=== PATIENT | male | born 1950 | race Caucasian/White ===

== ENCOUNTER 2021-01-30 22:49 | Observation (INO) | payer OTHER, BC ==
[2021-01-30] MEDS ORDERED: NA CHLORIDE 0.9% 1,000 ML ONE (23:46)
[2021-01-30] MEDS ORDERED: ONDANSETRON 4 MG/2 ML VIAL ONE (23:46)
[2021-01-31] LABS: Absolute Lymphocytes (CBC) 1.5 K/uL (0.7-4.9); Basophils % 0.8 % (0-1.3); Hematocrit 37.3 % (39.6-49.0); Lymphocytes % 25.6 % (15.3-44.8); MPV 8.1 fL (7.6-11.3); RBC Red Blood Cell Count 4.14 M/uL (4.33-5.43)
[2021-01-31 00:02] LABS: Protime INR 1.03
[2021-01-31 00:11] LABS: ALT/SGPT 22 U/L (12-78); AST/SGOT 13 U/L (15-37); Albumin 3.7 g/dL (3.4-5.0); Alkaline Phosphatase 38 U/L (45-117); BUN Blood Urea Nitrogen 36 mg/dL (7-18); Bicarbonate 26 mmol/L (21-32); Bilirubin Direct 0.3 mg/dL (0-0.2); Bilirubin Total 1.3 mg/dL (0.2-1.0); Glucose Level 166 mg/dL (74-106); Magnesium 2.4 mg/dL (1.8-2.4); NT PRO-BNP 48 pg/mL (<125); Potassium 3.7 mmol/L (3.5-5.1); Protein, Total 6.5 g/dL (6.4-8.2); Sodium Level 144 mmol/L (136-145); Troponin (Emerg Dept Use Only) < 0.02 ng/mL (0.0-0.045)
[2021-01-31 01:11] LABS: Urine Blood Negative (Negative); Urine Glucose Negative (Negative); Urine Protein Negative (Negative); Urine Specific Gravity >=1.030 (1.005-1.030); Urine pH 5.5 (5.0-7.0)
--- NOTE | 2021-01-31 01:15 | ER ---
Nurse's Notes [facility] Name: Jason Powell Age: 70 yrs Sex: Male : 1950 Arrival Date: 01/30/2021 Time: 22:53 Bed 13 Private MD: Diagnosis: Syncope and collapse Presentation: 01/30 22:58 Chief complaint: EMS states: Pt C/O dizziness, lightheartedness, nausea and vomiting. wh Per EMS pt was diaphoretic at scene. BP was elevated at 174/94, Pt states no Hx of Hypertension, BS at scene was 164. Zofran 4 mg IV given. Coronavirus screen: Client denies travel out of the [place] in the last 14 days. At this time, the client does not indicate any symptoms associated with coronavirus-19. Ebola Screen: Patient negative for fever greater than or equal to 101.5 degrees Fahrenheit, and additional compatible Ebola Virus Disease symptoms Patient denies exposure to infectious person. Initial Sepsis Screen: Does the patient meet any 2 criteria? No. Patient's initial sepsis screen is negative. Does the patient have a suspected source of infection? No. Patient's initial sepsis screen is negative. Risk Assessment: Do you want to hurt yourself or someone else? Patient reports no desire to harm self or others. Onset of symptoms was January 30, 2021. Care prior to arrival: Medication(s) given: zofran 4 mg, IV initiated. 18 GA, in the right antecubital area, Glucose check: 175. 22:58 Method Of Arrival: EMS: [facility] 22:58 Acuity: FRANSISCO 3 Historical: - Allergies: 23:04 No Known Allergies; - Home Meds: 23:04 gabapentin 300 mg oral cap 1 cap 3 times per day [Active]; Simvastatin Oral [Active]; - PMHx: 23:04 High Cholesterol; - PSHx: 23:04 Cataract; - Immunization history:: Adult Immunizations up to date. - Social history:: Smoking status: Patient denies any tobacco usage or history of. Patient/guardian denies using alcohol, street drugs, The patient lives with family, with spouse. - Family history:: not pertinent. Screenin:04 Abuse screen: Denies threats or abuse. Denies injuries from another. Nutritional wh screening: No deficits noted. Tuberculosis screening: No symptoms or risk factors identified. Fall Risk None identified. 23:06 VAN Screening: Arm Drift: Patient shows no arm weakness. Visual Disturbance: No visual wh disturbance noted. Aphasia: No aphasia noted. Neglect: No neglect noted. Assessment: 23:05 General: Appears in no apparent distress. Behavior is calm, cooperative, appropriate wh for age. Pain: Denies pain. Neuro: Level of Consciousness is awake, alert, obeys commands, Oriented to person, place, time, Welder Fitter are equal bilaterally Moves all extremities. Gait is steady, Speech is normal, Facial symmetry appears normal, Pupils are PERRLA, Intact Reports dizziness, lightheadedness. Cardiovascular: Heart tones S1 S2. Respiratory: Airway is patent Respiratory effort is even, unlabored, Respiratory pattern is regular, symmetrical. GI: Abdomen is flat, non-distended. : No signs and/or symptoms were reported regarding the genitourinary system. EENT: No signs and/or symptoms were reported regarding the EENT system. Derm: Skin is intact, is healthy with good turgor, Skin is pink, warm \T\ dry. normal. Musculoskeletal: Circulation, motion, and sensation intact. 01/31 00:00 Reassessment: Patient appears in no apparent distress at this time. No changes from previously documented assessment. Patient and/or family updated on plan of care and expected duration. Pain level reassessed. Patient is alert, oriented x 3, equal unlabored respirations, skin warm/dry/pink. 01:05 Reassessment: Patient appears in no apparent distress at this time. Patient and/or family updated on plan of care and expected duration. Pain level reassessed. Patient is alert, oriented x 3, equal unlabored respirations, skin warm/dry/pink. Provider at bedside explaining POC need for admit. 01:45 Reassessment: Patient appears in no apparent distress at this time. Patient and/or family updated on plan of care and expected duration. Pain level reassessed. Patient is alert, oriented x 3, equal unlabored respirations, skin warm/dry/pink. Vital Signs: 01/30 22:58 BP 153 / 84; Pulse 56; Resp 18; Temp 97.7; Pulse Ox 99% on R/A; Weight 79.38 kg; Height 5 ft. 9 in. (175.26 cm); 01/31 01:05 BP 141 / 75 Supine; Pulse 64; 01:05 BP 153 / 77 Sitting; Pulse 67; 01:05 BP 137 / 73 Standing; Pulse 67; 01:49 BP 118 / 76; Pulse 60; Resp 18; Pulse Ox 98% on R/A; 01/30 22:58 Body Mass Index 25.84 (79.38 kg, 175.26 cm) ED Course: 01/30 22:53 Patient arrived in ED. mw2 22:58 Emiliano Hernandez, RN is Primary Nurse. 23:03 Triage completed. 23:04 Patient has correct armband on for positive identification. Bed in low position. Call light in reach. Side rails up X 1. monitoring and evaluation advisor on. Pulse ox on. NIBP on. 23:06 Arm band placed on right wrist. 23:06 Maintain EMS IV. Dressing intact. Good blood return noted. Site clean \T\ dry. 23:09 Altaf Medeiros MD is Attending Physician. ma2 23:52 XRAY Chest (1 view) In Process Unspecified. EDMS 01/31 00:17 CT Head C Spine In Process Unspecified. EDND 01:15 Juan Fleming DO is Referral Physician. ma2 01:16 Juan Fleming DO is Hospitalizing Provider. ma2 01:49 No provider procedures requiring assistance completed. Patient admitted, IV remains in place. Administered Medications: 01/30 23:28 Drug: NS 0.9% 1000 ml Route: IV; Rate: 1 bolus; Site: right antecubital; 01/31 01:04 Follow up: Response: No adverse reaction; IV Status: Completed infusion 01/30 23:30 Drug: Zofran (Ondansetron) 4 mg Route: IVP; Site: right antecubital; 01/31 01:04 Follow up: Response: No adverse reaction; Nausea is decreased Outcome: 01:15 Discharge ordered by . ma2 01:16 Decision to Hospitalize by Provider. ma2 01:50 Admitted to Med/surg family with patient, via wheelchair, room 220, with chart, Report called to Rachell RICHTER 01:50 Condition: stable 01:50 Instructed on the need for admit. 02:22 Patient left the ED. Signatures: Dispatcher [employer] Emiliano Barrera RN RN Altaf Medeiros MD MD ak2 Tadeo Daniel 2
--- NOTE | 2021-01-31 01:15 | EDPHYS ---
Physician Documentation [facility] Name: Jason Powell Age: 70 yrs Sex: Male : 1950 Arrival Date: 01/30/2021 Time: 22:53 Bed 13 Private MD: ED Physician Altaf Medeiros HPI: 01/30 23:32 This 70 yrs old Male presents to ER via EMS with complaints of syncope. ma2 23:32 Onset: The symptoms/episode began/occurred acutely, suddenly, 1 hour(s) ago. Severity ma2 of symptoms: At their worst the symptoms were moderate in the emergency department the symptoms have improved. The patient has not experienced similar symptoms in the past. Historical: - Allergies: 23:04 No Known Allergies; wh - Home Meds: 23:04 gabapentin 300 mg oral cap 1 cap 3 times per day [Active]; Simvastatin Oral [Active]; - PMHx: 23:04 High Cholesterol; - PSHx: 23:04 Cataract; - Immunization history:: Adult Immunizations up to date. - Social history:: Smoking status: Patient denies any tobacco usage or history of. Patient/guardian denies using alcohol, street drugs, The patient lives with family, with spouse. - Family history:: not pertinent. ROS: 23:32 Constitutional: Negative for fever, chills, and weight loss. ma2 23:32 All other systems are negative. Exam: 23:32 Constitutional: This is a well developed, well nourished patient who is awake, alert, ma2 and in no acute distress. Head/Face: Normocephalic, atraumatic. Eyes: Pupils equal round and reactive to light, extra-ocular motions intact. Lids and lashes normal. Conjunctiva and sclera are non-icteric and not injected. Cornea within normal limits. Periorbital areas with no swelling, redness, or edema. ENT: Nares patent. No nasal discharge, no septal abnormalities noted. Tympanic membranes are normal and external auditory canals are clear. Oropharynx with no redness, swelling, or masses, exudates, or evidence of obstruction, uvula midline. Mucous membranes moist. Neck: Trachea midline, no thyromegaly or masses palpated, and no cervical lymphadenopathy. Supple, full range of motion without nuchal rigidity, or vertebral point tenderness. No Meningismus. Chest/axilla: Normal chest wall appearance and motion. Nontender with no deformity. No lesions are appreciated. Cardiovascular: Regular rate and rhythm with a normal S1 and S2. No gallops, murmurs, or rubs. Normal PMI, no JVD. No pulse deficits. Respiratory: Lungs have equal breath sounds bilaterally, clear to auscultation and percussion. No rales, rhonchi or wheezes noted. No increased work of breathing, no retractions or nasal flaring. Abdomen/GI: Soft, non-tender, with normal bowel sounds. No distension or tympany. No guarding or rebound. No evidence of tenderness throughout. Back: No spinal tenderness. No costovertebral tenderness. Full range of motion. Skin: Warm, dry with normal turgor. Normal color with no rashes, no lesions, and no evidence of cellulitis. MS/ Extremity: Pulses equal, no cyanosis. Neurovascular intact. Full, normal range of motion. Neuro: Awake and alert, GCS 15, oriented to person, place, time, and situation. Cranial nerves II-XII grossly intact. Motor strength 5/5 in all extremities. Sensory grossly intact. Cerebellar exam normal. Normal gait. Vital Signs: 22:58 BP 153 / 84; Pulse 56; Resp 18; Temp 97.7; Pulse Ox 99% on R/A; Weight 79.38 kg; Height 5 ft. 9 in. (175.26 cm); 01/31 01:05 BP 141 / 75 Supine; Pulse 64; 01:05 BP 153 / 77 Sitting; Pulse 67; 01:05 BP 137 / 73 Standing; Pulse 67; 01:49 BP 118 / 76; Pulse 60; Resp 18; Pulse Ox 98% on R/A; 01/30 22:58 Body Mass Index 25.84 (79.38 kg, 175.26 cm) [facility]: 01/30 23:20 Patient medically screened. [facility] 23:32 Differential Diagnosis syncope dd iclude dehydration diarrhea vertigo vs acs. [facility] 01/31 01:14 Data reviewed: vital signs, nurses notes. Counseling: I had a detailed discussion with ma the patient and/or guardian regarding: the historical points, exam findings, and any diagnostic results supporting the discharge/admit diagnosis, the presence of at least one elevated blood pressure reading (>120/80) during this emergency department visit, the need for further work-up and treatment in the hospital. Response to treatment: the patient's symptoms have markedly improved after treatment. 01/30 23:08 Order name: Basic Metabolic Panel; Complete Time: 00:20 [facility] 01/30 23:08 Order name: CBC with Diff; Complete Time: 00:20 [facility] 01/30 23:08 Order name: LFT's; Complete Time: 00:20 nm01/30 23:08 Order name: Magnesium; Complete Time: 00:20 nm01/30 23:08 Order name: NT PRO-BNP; Complete Time: 00:20 nm01/30 23:08 Order name: PT-INR; Complete Time: 00:20 [facility] 01/30 23:08 Order name: Troponin (emerg Dept Use Only); Complete Time: 00:20 [facility] 01/30 23:08 Order name: XRAY Chest (1 view) [facility] 01/30 23:32 Order name: UDS [facility] 01/30 23:46 Order name: PTT, Activated Partial Thromb; Complete Time: 00:20 EDIL 01/31 00:44 Order name: SARS-COV-2 RT PCR; Complete Time: 01:16 ED01/31 01:11 Order name: Urine Dipstick-Ancillary; Complete Time: 01:16 EDMS 01/30 23:08 Order name: EKG; Complete Time: 23:09 [facility] 01/30 23:08 Order name: Cardiac monitoring; Complete Time: 23:31 nm01/30 23:08 Order name: EKG - Nurse/Tech; Complete Time: 23:31 nm01/30 23:08 Order name: IV Saline Lock; Complete Time: 23:31 nm01/30 23:08 Order name: Labs collected and sent; Complete Time: 23:31 nm01/30 23:08 Order name: O2 Per Protocol; Complete Time: 23:31 nm01/30 23:08 Order name: O2 Sat Monitoring; Complete Time: 23:31 nm01/30 23:32 Order name: CT Head C Spine [facility] 01/30 23:32 Order name: NPO; Complete Time: 23:32 [facility] 01/30 23:32 Order name: Urine Dipstick-Ancillary (obtain specimen); Complete Time: 01:04 ma2 01/31 00:24 Order name: Orthostatics; Complete Time: 01:04 la1 Administered Medications: 01/30 23:28 Drug: NS 0.9% 1000 ml Route: IV; Rate: 1 bolus; Site: right antecubital; 01/31 01:04 Follow up: Response: No adverse reaction; IV Status: Completed infusion 01/30 23:30 Drug: Zofran (Ondansetron) 4 mg Route: IVP; Site: right antecubital; 01/31 01:04 Follow up: Response: No adverse reaction; Nausea is decreased Disposition: 01/31/21 01:16 Hospitalization ordered by Juan Fleming for Observation. Preliminary diagnosis is Syncope and collapse. - Bed requested for Telemetry/MedSurg (observation). - Status is Observation. - Condition is Stable. - Problem is new. - Symptoms are unchanged. Signatures: Dispatcher [employer] EDIL Alexa Jimenez RN RN Richard Rivera, BUILDING CUSTODIAN-C BUILDING CUSTODIAN-Cla1 Emiliano Hernandez RN RN Altaf Medeiros MD MD ma2 Corrections: (The following items were deleted from the chart) 01/30 23:46 23:33 PTT, ACTIVATED+COAG.LAB.BRZ ordered. [facility] EDIL 23:56 23:41 CORONAVIRUS+MR.LAB.BRZ ordered. [facility] 01/31 01:15 01:15 01/31/2021 01:15 Discharged to Home. Impression: Syncope and collapse. Condition ma2 is Stable. Forms are Medication Reconciliation Form, Thank You Letter, Antibiotic Education, Prescription Opioid Use. Follow up: Juan Fleming; When: Tomorrow; Reason: If symptoms return, Continuance of care. nm2 01:32 01:16 Hospitalization Ordered by Juan Fleming DO for Observation. Preliminary diagnosis is Syncope and collapse. Bed requested for Telemetry/MedSurg (observation). Status is Observation. Condition is Stable. Problem is new. Symptoms are unchanged. ma2 02:22 01:32 01/31/2021 01:16 Hospitalization Ordered by Juan Fleming DO for Observation. Preliminary diagnosis is Syncope and collapse. Bed requested for Telemetry/MedSurg (observation). Status is Observation. Condition is Stable. Problem is new. Symptoms are unchanged. dw
[2021-01-31 01:27] LABS: Barbiturates NEGATIVE (NEGATIVE); Benzodiazepines NEGATIVE (NEGATIVE); Cocaine NEGATIVE (NEGATIVE); METHAMPHETAM NEGATIVE (NEGATIVE); Methadone NEGATIVE (NEGATIVE); Opiates NEGATIVE (NEGATIVE); Phencyclidine NEGATIVE (NEGATIVE); THC Cannibis NEGATIVE (NEGATIVE)
--- NOTE | 2021-01-31 01:38 | P.HP ---
Certification for Inpatient Patient admitted to: Observation With expected LOS: <2 Midnights Patient will require the following post-hospital care: None Practitioner: I am a practitioner with admitting privileges, knowledge of patient current condition, hospital course, and medical plan of care. Services: Services provided to patient in accordance with Admission requirements found in Title 42 Section 412.3 of the Code of Federal Regulations Patient History Date of Service: 01/31/21 Reason for admission: Near syncope, dizziness History of Present Illness: 70-year-old male with history of hyperlipidemia presents emergency department for near syncope, dizziness. Patient reports he was lying on the couch and had a sudden wave Passover him followed by severe dizziness, nausea, diaphoresis, vomiting. Patient denies any headache, chest pain, palpitations surrounding the incident, reports that the episode lasted for 20-30 min but he is still having some residual lightheadedness. Patient was evaluated in the emergency department, labs significant for hemoglobin 12.9 hematocrit 37.3 creatinine 1.43 GFR 49, BUN [address] head neck negative for any acute findings. Patient's symptoms have improved, no neurological symptoms present currently aside from some lightheadedness, ED provider wishes to admit under observation for further evaluation and management. - Past Medical/Surgical History -: Hyperlipidemia -: Borderline diabetes -: Cataract Psychosocial/ Personal History: Retired lives alone - Family History Father -: Heart disease - Social History Smoking Status: Never smoker Alcohol use: No CD- Drugs: No Caffeine use: Yes Place of Residence: Home Review of Systems 10-point ROS is otherwise unremarkable Neurological: Other (Dizziness lightheadedness), As per HPI Physical Examination - Physical Exam General: Alert, In no apparent distress HEENT: Atraumatic, PERRLA, Mucous membr. moist/pink, EOMI, Sclerae nonicteric Neck: Supple, 2+ carotid pulse no bruit, No LAD, Without JVD or thyroid abnormality Respiratory: Clear to auscultation bilaterally, Normal air movement Cardiovascular: Regular rate/rhythm, Normal S1 S2 Gastrointestinal: Normal bowel sounds, No tenderness Musculoskeletal: No tenderness Integumentary: No rashes Neurological: Normal gait, Normal speech, Normal strength at 5/5 x4 extr, Normal tone, Sensation intact, Cranial nerves 3-12 intact, Normal affect, Other (A few beats of right beating nystagmus noted on exam) Lymphatics: No axilla or inguinal lymphadenopathy - Studies Laboratory Data (last 24 hrs) 01/30/21 23:32: APTT Cancelled 01/30/21 23:23: PT 11.8, INR 1.03, APTT 26.3 01/30/21 23:23: WBC 5.70, Hgb 12.9 L, Hct 37.3 L, Plt Count 210 01/30/21 23:23: Sodium 144, Potassium 3.7, BUN 36 H, Creatinine 1.43 H, Glucose 166 H, Magnesium 2.4, Total Bilirubin 1.3 H, AST 13 L, ALT 22, Alkaline Phosphatase 38 L Assessment and Plan - Plan Assessment Dizziness, near-syncope Renal insufficiency Borderline diabetes, hyperlipidemia Plan Dizziness, near-syncope: CT head negative in the emergency department, labs unremarkable aside from mild renal insufficiency. Will obtain echocardiogram, carotid ultrasound, MRI brain without. Possibility of BPPV but symptoms are not reproducible this time. Will continue with daily aspirin, statin therapy. Orthostatics being obtained. DVT prophylaxis Lovenox 40 mg subcutaneous once daily. Renal insufficiency: Continue IV fluids, will recheck chemistry with morning labs. Consult nephrology as necessary. Borderline diabetes, hyperlipidemia: Stable, will check A1c. Discharge Plan: Home Plan to discharge in: 24 Hours - Advance Directives Does patient have a Living Will: No Does patient have a Durable POA for Healthcare: No - Code Status/Comfort Care Code Status Assessed: Yes (Full code) Critical Care: No Time Spent Managing Pts Care (In Minutes): 55
[2021-01-31 02:19] VITALS: BMI 25.8
[2021-01-31] MEDS ORDERED: ACETAMINOPHEN 500 MG TAB PO PRN (02:19)
[2021-01-31] MEDS ORDERED: ONDANSETRON 4 MG/2 ML VIAL IV PRN (02:19)
[2021-01-31] MEDS: NA CHLORIDE 0.9% 1,000 ML IV SCH ×2 (02:33→14:52)
[2021-01-31 03:13] LABS: Urine Appearance CLEAR (Clear); Urine Blood NEGATIVE (Negative); Urine Color YELLOW (Yellow); Urine Glucose NEGATIVE (Negative); Urine Protein NEGATIVE (Negative); Urine Urobilinogen 0.2 mg/dL (0.2-1.0); Urine pH 5.5 (5.0-7.0)
[2021-01-31 03:16] LABS: Urine Microscopic Reflex NO UMIC
[2021-01-31 03:22] LABS: Urine Bilirubin NEGATIVE (Negative)
[2021-01-31 03:46] VITALS: O2SAT 97
[2021-01-31] MEDS ORDERED: ETODOLAC 400 MG PO PRN (05:12)
[2021-01-31] MEDS ORDERED: POTASSIUM CL SA 10 MEQ TAB PO ONE (07:00)
[2021-01-31 08:05] LABS: Potassium 4.3 mmol/L (3.5-5.1); Thyroid Stimulating Hormone 1.63 uIU/mL (0.360-3.740)
--- NOTE | 2021-01-31 08:57 | RAD REPORT ---
EXAM DESCRIPTION: RAD - Chest Single View - 01/30/2021 11:52 pm CLINICAL HISTORY: CHEST PAIN Chest pain. COMPARISON: No comparisons FINDINGS: Portable technique limits examination quality. The lungs are grossly clear. The heart is normal in size. No displaced fractures. IMPRESSION: No acute intrathoracic process suspected.
--- NOTE | 2021-01-31 08:58 | EKG ---
Test Date: 2021-01-30 Test Time: 23:19:28 Recoverer: MEASUREMENT RESULTS: Intervals: Rate: 58 [place]: 200 QRSD: 86 QT: 418 QTc: 410 [place]: P: 59 [place]: 200 QRS: 60 T: 61 INTERPRETIVE STATEMENTS: Sinus bradycardia Otherwise normal ECG Compared to ECG 09/24/2004 05:44:00 No significant changes Electronically Signed On 01-31-21 08:58:36 CDT by Zain Yang
[2021-01-31] MEDS ORDERED: GABAPENTIN 300 MG CAP PO SCH (09:00)
[2021-01-31] MEDS ORDERED: ATORVASTATIN 10 MG TAB PO SCH (09:00)
[2021-01-31] MEDS ORDERED: ENOXAPARIN 40 MG/0.4 ML SQ SCH (09:00)
--- NOTE | 2021-01-31 09:35 | RAD REPORT ---
EXAM DESCRIPTION: - CP - 01/31/2021 8:50 am CLINICAL HISTORY: dizziness, near syncope Headache, drowsiness COMPARISON: Head C Spine Mpr Wo Con dated 01/30/2021 TECHNIQUE: Real-time sonographic evaluation of both carotid systems was performed. Doppler interroga tion was performed with waveform tracing bilaterally. FINDINGS: Normal high resistance waveforms are noted in both external carotid arteries. The common c arotid arteries and internal carotid arteries show normal low resistance waveforms. Minimal plaquing in both carotid bulbs. Peak systolic and end diastolic velocity values and the ICA/C CA ratios are in the non-hemodynamically significant range. Antegrade flow seen in both vertebral arteries. IMPRESSION: Minimal plaquing in both carotid bulbs. No evidence of a hemodynamically significant stenosis.
--- NOTE | 2021-01-31 10:42 | RAD REPORT ---
EXAM DESCRIPTION: Head CT COMPARISON: None. CLINICAL HISTORY: [facility] MA[facility] syncope TECHNIQUE: Axial images were obtained from skull base to vertex without intravenous contrast. Imag es viewed on bone and brain windows. Multiplanar reformats were performed. Automated exposure contr ol was utilized on this examination as a dose lowering technique. FINDINGS: Brain parenchyma, ventricles, dura, meninges, and extra-axial spaces: Mild generalized cer ebral and cerebellar volume loss is present. Mild hypodensities in the subcortical white matter of my th hemispheres are nonspecific but likely relate to chronic small vessel disease. No acute intracrani al hemorrhage. A 6 mm colloid cyst is noted. Vascular structures: No hyperdense arteries or veins. Calvarium, mastoid air cells, paranasal sinuses and orbits: The calvarium is normal. The mastoid air cells are clear. Visualized paranasal sinuses are unremarkable. Orbital structures are unremarkable. IMPRESSION: 1. No acute intracranial abnormality. 2. Mild senescent changes. EXAM DESCRIPTION: CT Cervical Spine COMPARISON: None. CLINICAL HISTORY: [facility] MA[facility] syncope TECHNIQUE: Axial CT images were obtained through the entire cervical spine without contrast. Sagit lionel and coronal reconstructions are provided. Automated exposure control was utilized on this examina tion as a dose lowering technique. FINDINGS: Vertebrae: Vertebral statures and alignment are normal. No acute fracture, dislocation o r destructive osseous process is present. Spinal canal, foramina, and facet joints: Probable mild spinal canal stenosis at C5-C6 due to disc osteophyte complex. Up to moderate neurofora chayo stenosis at bilateral C4, bilateral C5, left C6 due to uncovertebral and facet hypertrophy. Paraspinous soft-tissues: Normal. Thyroid: Normal. Other Findings: None. IMPRESSION: 1. No acute fracture or subluxation. 2. Cervical spondylosis. Electronically signed by: Lars Siddiqui MD 01/31/2021 12:24 AM CDT Due to temporary technical issues with the PACS/Fluency reporting system, reports are being signed by the in house radiologist without review as a courtesy to ensure prompt reporting. The interpreting r adiologist is fully responsible for the content of the report.
--- NOTE | 2021-01-31 15:46 | P.DS ---
Admission Date: 01/31/21 Discharge Date: 01/31/21 Primary Care Provider: Dr. Nunes Disposition: ROUTINE DISCHARGE Discharge Condition: GOOD Reason for Admission: Near syncope, dizziness Consultations: none Procedures: COVID: Negative CXR: COMPARISON: No comparisons FINDINGS: Portable technique limits examination quality. The lungs are grossly clear. The heart is normal in size. No displaced fractures. IMPRESSION: No acute intrathoracic process suspected. CT head: CLINICAL HISTORY: [facility] MAIN syncope TECHNIQUE: Axial images were obtained from skull base to vertex without intravenous contrast. Images viewed on bone and brain windows. Multiplanar reformats were performed. Automated exposure control was utilized on this examination as a dose lowering technique. FINDINGS: Brain parenchyma, ventricles, dura, meninges, and extra-axial spaces: Mild generalized cerebral and cerebellar volume loss is present. Mild hypodensities in the subcortical white matter of both hemispheres are nonspecific but likely relate to chronic small vessel disease. No acute intracr anial hemorrhage. A 6 mm colloid cyst is noted. Vascular structures: No hyperdense arteries or veins. Calvarium, mastoid air cells, paranasal sinuses and orbits: The calvarium is normal. The mastoid air cells are clear. Visualized paranasal sinuses are unremarkable. Orbital structures are unremarkable. IMPRESSION: 1. No acute intracranial abnormality. 2. Mild senescent changes. Carotid doppler: COMPARISON: Head C Spine Mpr Wo Con dated 01/30/2021 TECHNIQUE: Real-time sonographic evaluation of both carotid systems was performed. Doppler interrogation was performed with waveform tracing bilaterally. FINDINGS: Normal high resistance waveforms are noted in both external carotid arteries. The common carotid arteries and internal carotid arteries show normal low resistance waveforms. Minimal plaquing in both carotid bulbs. Peak systolic and end diastolic velocity values and the ICA/CCA ratios are in the non-hemodynamically significant range. Antegrade flow seen in both vertebral arteries. IMPRESSION: Minimal plaquing in both carotid bulbs. No evidence of a hemodynamically significant stenosis. ECHO: obtained MRI Brain: FINDINGS: No intracranial hemorrhage, mass or acute infarction. There is no edema or shift of midline structures. No extra-axial fluid collections. Khan- matter/white matter junction is preserved. Signal voids are seen as a normal finding in the major intracranial vessels. No significant atrophy changes are identifiable. Ventricles are normal. Patient has very little identifiable chronic ischemic change. In the posteroinferior left frontal lobe white matter there is a 7 millimeter area of T2/IR hyperintense signal most likely an ischemic focus was long-standing. Area is hypointense on T1 weighted imaging. No globe or orbital content abnormality. No sella or supra sella abnormality. Mastoid air cells are clear. No middle ear abnormality seen. No CP angle mass. Paranasal sinuses are clear. IMPRESSION: No acute infarction changes are seen. No hemorrhage, mass or acute intracranial finding. No measurable atrophy changes are seen and patient has very minimal chronic ischemic change. Medical problem list: Dizziness, near-syncope, renal insufficiency likely from dehydration Prediabetes Hyperlipidemia TMJ Brief History of Present Illness: 70-year-old male with history of hyperlipidemia presents emergency department for near syncope, dizziness. Patient reports he was lying on the couch and had a sudden wave. Patient reported severe dizziness, nausea, diaphoresis, vomiting. Patient denies any headache, chest pain, palpitations surrounding the incident, reports that the episode lasted for 20-30 min but he is still having some residual lightheadedness. Patient was evaluated in the emergency department, labs significant for hemoglobin 12.9 hematocrit 37.3 creatinine 1.43 GFR 49, BUN [address] head neck negative for any acute findings. Patient's symptoms have improved, no neurological symptoms. Patient was admitted for observation. Hospital Course: Patient presented with dizziness, near syncope. Patient found to have acute renal insufficiency likely from dehydration. Patient also has been using nonsteroidal anti-inflammatory for chronic pain. Patient was given IV fluids and monitored. CT head unremarkable. Carotid Doppler shows no acute finding. This likely from dehydration. MRI unremarkable. At discharge no further dizziness noted. No severe headache noted. Patient appears to be at his baseline. No focal deficits noted. No orthostatic changes noted. At discharge patient will continue with increased hydration. Recommend to recheck labBMP to monitor resolution of renal function. Recommend to discontinue Lodine at discharge. Patient may continue with Neurontin 300 mg daily for chronic pain. Patient may take Tylenol or low-dose Aleve as needed for pain. Recommend follow-up with PCP in 1 week to follow-up his hospitalization and to recheck labBMP. Patient with hyperlipidemia. At discharge patient may continue with his current medication simvastatin 10 mg daily. Patient with prediabetes. Hemoglobin A1c 5.8. Recommend to recheck hemoglobin A1c in 6 to 12 months to monitor his progress. Blood pressures have been controlled. Blood pressures were initially elevated. Recommend to monitor blood pressure daily. Recommend to keep a blood pressure log. If blood pressures remain above 140/90 he can follow-up with his PCP to determine if medication will be required. Patient also reports problems with TMJ. 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 Recommend to continue treatment for TMJ as the patient has chronic headaches. Vital Signs/Physical Exam: Temp Pulse Resp BP Pulse Ox 97.9 F 56 18 158/77 H 98 01/31/21 12:00 01/31/21 12:00 01/31/21 12:00 01/31/21 12:00 01/31/21 12:00 General: Alert, In no apparent distress, Oriented x3, Cooperative HEENT: Atraumatic Neck: Supple Respiratory: Clear to auscultation bilaterally, Normal air movement Cardiovascular: Normal pulses, Regular rate/rhythm Gastrointestinal: Normal bowel sounds, Soft and benign, Non-distended, No tenderness, No masses, No rebound, No guarding Musculoskeletal: No erythema, No tenderness, No warmth Integumentary: No tenderness/swelling Neurological: Normal speech, Normal strength at 5/5 x4 extr, Normal tone, Normal affect Laboratory Data at Discharge: WBC 5.70 K/uL (4.3-10.9) 01/30/21 23:23 Hgb 12.9 g/dL (13.6-17.9) L 01/30/21 23:23 Hct 37.3 % (39.6-49.0) L 01/30/21 23:23 Plt Count 210 K/uL (152-406) 01/30/21 23:23 PT 11.8 SECONDS (9.5-12.5) 01/30/21 23:23 INR 1.03 01/30/21 23:23 APTT Cancelled 01/30/21 23:32 Sodium 144 mmol/L (136-145) 01/31/21 07:22 Potassium 4.3 mmol/L (3.5-5.1) 01/31/21 07:22 BUN 33 mg/dL (7-18) H 01/31/21 07:22 Creatinine 1.16 mg/dL (0.55-1.3) 01/31/21 07:22 Glucose 122 mg/dL (74-106) H 01/31/21 07:22 Magnesium 2.4 mg/dL (1.8-2.4) 01/30/21 23:23 Total Bilirubin 1.3 mg/dL (0.2-1.0) H 01/30/21 23:23 AST 13 U/L (15-37) L 01/30/21 23:23 ALT 22 U/L (12-78) 01/30/21 23:23 Alkaline Phosphatase 38 U/L (45-117) L 01/30/21 23:23 Triglycerides 66 mg/dL (<150) 01/31/21 07:22 Cholesterol 174 mg/dL (<200) 01/31/21 07:22 HDL Cholesterol 53 mg/dL (40-60) 01/31/21 07:22 Cholesterol/HDL Ratio 3.28 01/31/21 07:22 Home Medications: Gabapentin 300 mg PO DAILY 01/31/21 Simvastatin 10 mg PO DAILY 01/31/21 Physician Discharge Instructions: Patient presented with dizziness, near syncope. Patient found to have acute renal insufficiency likely from dehydration. Patient also has been using nonsteroidal anti-inflammatory for chronic pain. Patient was given IV fluids and monitored. CT head unremarkable. Carotid Doppler shows no acute finding. This likely from dehydration. At discharge no further dizziness noted. No severe headache noted. Patient appears to be at his baseline. No focal defici ts noted. No orthostatic changes noted. At discharge patient will continue with increased hydration. Recommend to recheck labBMP to monitor resolution of renal function. Recommend to discontinue Lodine at discharge. Patient may continue with Neurontin 300 mg daily for chronic pain. Patient may take Tylenol or low-dose Aleve as needed for pain. Recommend follow-up with PCP in 1 week to follow-up his hospitalization and to recheck labBMP. Patient with hyperlipidemia. At discharge patient may continue with his current medication simvastatin 10 mg daily. Patient with prediabetes. Hemoglobin A1c 5.8. Recommend to recheck hemoglobin A1c in 6 to 12 months to monitor his progress. Blood pressures have been controlled. Blood pressures were initially elevated. Recommend to monitor blood pressure daily. Recommend to keep a blood pressure log. If blood pressures remain above 140/90 he can follow-up with his PCP to determine if medication will be required. Patient also reports problems with TMJ. 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 Recommend to continue treatment for TMJ as the patient has chronic headaches. Diet: AHA Activity: Fall precautions Followup: NONE,NONE [Primary Care Provider] - Time spent managing pt's care (in minutes): 55
[2021-01-31 17:24] VITALS: BP 139/75; TEMP 98.1
--- NOTE | 2021-01-31 17:37 | RAD REPORT ---
EXAM DESCRIPTION: MRI - Brain Wo Cont - 01/31/2021 4:27 pm CLINICAL HISTORY: dizziness COMPARISON: Head C Spine Mpr Wo Con dated 01/30/2021 TECHNIQUE: Sagittal T1-weighted images were obtained along with axial PD, heavily T2-weighted and T2 -FLAIR images. Axial DWI and ADC mapping sequences were also obtained along with coronal heavily T2-w eighted images. FINDINGS: No intracranial hemorrhage, mass or acute infarction. There is no edema or shift of midlin e structures. No extra-axial fluid collections. Khan-matter/white matter junction is preserved. Signa l voids are seen as a normal finding in the major intracranial vessels. No significant atrophy change s are identifiable. Ventricles are normal. Patient has very little identifiable chronic ischemic hood ge. In the posteroinferior left frontal lobe white matter there is a 7 millimeter area of T2/IR hyper intense signal most likely an ischemic focus was long-standing. Area is hypointense on T1 weighted im aging. No globe or orbital content abnormality. No sella or supra sella abnormality. Mastoid air cells are clear. No middle ear abnormality seen. No CP angle mass. Paranasal sinuses are clear. IMPRESSION: No acute infarction changes are seen. No hemorrhage, mass or acute intracranial finding. No measurable atrophy changes are seen and patient has very minimal chronic ischemic change.
--- NOTE | 2021-02-01 08:18 | ECHO ---
HEIGHT: 5 ft 9 in WEIGHT: 174 lb 14.4 oz DATE OF STUDY: 01/31/[address]: Richard Rivera NP 2-DIMENSIONAL: YES M.MODE: YES DOPPLER: YES COLOR FLOW: YES TDS: NO PORTABLE: NO DEFINITY: NO BUBBLE STUDY: NO DIAGNOSIS: SYNCOPE CARDIAC HISTORY: CATHERIZATION: SURGERY: PROSTHETIC VALVE: PACEMAKER: MEASUREMENTS (cm) DIASTOLIC (NORMALS) SYSTOLIC (NORMALS) IVSd 1.1 (0.6-1.2) LA Diam 4.2 (1.9-4.0) LVEF 60-65% LVIDd 3.8 (3.5-5.7) LVIDs 2.4 (2.0-3.5) %FS % LVPWd 1.0 (0.6-1.2) Ao Diam 3.6 (2.0-3.7) 2 DIMENSIONAL ASSESSMENT: RIGHT ATRIUM: NORMAL LEFT ATRIUM: NORMAL RIGHT VENTRICLE: NORMAL LEFT VENTRICLE: NORMAL TRICUSPID VALVE: NORMAL MITRAL VALVE: NORMAL PULMONIC VALVE: NORMAL AORTIC VALVE: NORMAL PERICARDIAL EFFUSION: NONE AORTIC ROOT: NORMAL LEFT VENTRICULAR WALL MOTION: NORMAL DOPPLER/COLOR FLOW: MILD TRICUSPID AND MITRAL REGURGITATION. COMMENTS: NORMAL LEFT VENTRICULAR EJECTION FRACTION 60-65%. NORMAL WALL MOTION. NORMAL DIASTOLIC FUNCTION. MILD TRICUSPID AND MITRAL REGURGITATION. TECHNOLOGIST: Ary ZULETA
== END 2021-01-31 18:19 | disposition home or self-care (01) ==
LOC: ER 22:49 → ERHOLD 01-31 01:33 → 2ND 01-31 01:51
PROVIDERS: ADMIT Family Medicine; ATTEND Family Medicine
DX: R55 Syncope and collapse (principal); E86.0 Dehydration; N28.9 Disorder of kidney and ureter, unspecified; R73.03 Prediabetes; E78.5 Hyperlipidemia, unspecified; R42 Dizziness and giddiness; G89.29 Other chronic pain; E78.00 Pure hypercholesterolemia, unspecified; M26.609 Unspecified temporomandibular joint disorder, unspecified side; R51.9 Headache, unspecified; Z20.822 Contact with and (suspected) exposure to COVID-19; Z82.49 Family history of ischemic heart disease and other diseases of the circulatory system
CPT/HCPCS: 96361; 93005; 93306; 85025; 80048 ×2; 36415; 83735; 85610; 80061; 80076; 80307 ×8; 85730; 84443; 81003 ×2; 83036; 84484; 84439; 83880; 70450; 72125; 71045; 93880; 70551; 97112; 97116; 97161; 96374; 99285; U0003; J1650; J7030 ×3; J2405